=== PATIENT | male | born 1955 | race Caucasian/White ===

== ENCOUNTER 2020-04-09 03:52 | Emergency (ER) | payer MEDICARE, OTHER ==
[~2020-04-09] VITALS: Ht 177.8 cm; Wt 64.4 kg
[2020-04-09 04:01] VITALS: BP 161/74
[2020-04-09] MEDS ORDERED: HORIZANT600 MG PO (04:04)
[2020-04-09] MEDS ORDERED: PREDNISONE 10 M10 M1 PO (04:21)
== END 2020-04-09 04:20 | disposition home or self-care (01) ==
LOC: M.ERS 03:52
DX: T63.461A Toxic effect of venom of wasps, accidental (unintentional), initial encounter (principal); G62.9 Polyneuropathy, unspecified; Y92.89 Other specified places as the place of occurrence of the external cause

== ENCOUNTER 2021-01-07 02:39 | Emergency (ER) | payer MEDICARE, OTHER ==
[~2021-01-07] VITALS: Ht 177.8 cm; Wt 64.4 kg
[~2021-01-07 02:39] MED LIST: HORIZANT600 MG PO; PREDNISONE 10 M10 M1 PO
[2021-01-07 02:43] VITALS: BP 170/68
[2021-01-07] MEDS ORDERED: GENTAK5 ML EA. EYE (03:10)
== END 2021-01-07 03:25 | disposition home or self-care (01) ==
LOC: M.ERS 02:39
DX: S05.01XA Injury of conjunctiva and corneal abrasion without foreign body, right eye, initial encounter (principal); X58.XXXA Exposure to other specified factors, initial encounter; Y93.89 Activity, other specified; Y92.89 Other specified places as the place of occurrence of the external cause; Y99.8 Other external cause status